=== PATIENT | male | born 1945 | race Caucasian/White ===

== ENCOUNTER → 2017-01-21 | Outpatient (CLI) | payer BC ==
[~2017-01-21] MED LIST: AGM875 PO; EZET10TA38; FAMO40TA6 PO; LISI40TA PO; LRT5 PO; SIMV40TA2 PO; [UNRECOGNIZED DRUG - OTHER] PO
== END | disposition home or self-care (01) ==
LOC: C.PATHSPEC 18:19
PROVIDERS: ATTEND Urology
DX: R97.20 Elevated prostate specific antigen [PSA] (principal); C61 Malignant neoplasm of prostate

== ENCOUNTER → 2017-01-29 | Outpatient (CLI) | payer BC ==
[~2017-01-29] MED LIST changes: +OPTIRAY 320 IV PRN
--- NOTE | 2017-01-29 08:27 | DIAGNOSTIC IMAGING REPORT ---
ABDOMEN AND PELVIS CT WITH IV CONTRAST CT DOSE: 918.42 mGy.cm HISTORY: C61 Prostate cancer AUTH#[id number] VALID FROM 01/28/17 - 03/29/ TECHNIQUE: Multiaxial CT images of the abdomen and pelvis were performed following the use of intravenous contrast. A dose lowering technique was utilized adhering to the principles of ALARA. COMPARISON STUDY: None. FINDINGS: A few bibasilar linear densities likely represent atelectasis or scarring. There is a left total hip arthroplasty. No suspicious lytic or blastic osseous lesions. Small fat-containing umbilical hernia. Small fat-containing bilateral inguinal hernias. Small hiatus hernia. A 7 mm hypodense lesion within the right hepatic lobe. This is too small to characterize but favors a cyst. There are 2 subtle enhancing lesion within the spleen with the largest measuring 9 mm. These are incompletely characterized on this single phase study but are likely benign. The adrenal glands, pancreas, and gallbladder are unremarkable. Normal caliber abdominal aorta. Bilateral renal hypodense lesions consistent with cysts. The largest in the lower pole of the right kidney measures 3.1 cm. There are small bilateral peripelvic renal cysts. No hydronephrosis. Single prominent right iliac lymph node on image 332 which measures 10 x 8 mm. Otherwise, no retroperitoneal or mesenteric lymphadenopathy. Prostate gland is not well visualized due to the metallic artifact from the left hip prosthesis. The bladder appears unremarkable. Colonic diverticulosis. No bowel wall thickening or obstruction. Normal appendix. IMPRESSION: 1. A single prominent right pelvic sidewall lymph node at the bifurcation of the iliac arteries. This bears watching on future examinations. 2. Otherwise, no definite evidence for metastatic disease within the abdomen or pelvis. 3. Subcentimeter enhancing lesions within the spleen are technically indeterminate but favor benign lesions. 4. Additional findings as described above. Electronically signed by: Fito Stroud M.D. 01/29/2017 8:26 AM Dictated Date/Time: 01/29/2017 8:10 AM
--- NOTE | 2017-01-29 11:22 | DIAGNOSTIC IMAGING REPORT ---
WHOLE BODY BONE SCAN HISTORY: R97.20 Elevated PSAN40.2 Prostate [id number] Prostate [id number] RADIOTRACER: 27.5 mCi Tc-99m MDP STUDY/IMAGES: Planar anterior and posterior whole body imaging was performed 3 hours following the intravenous administration of radiotracer. COMPARISON: Abdomen and pelvis CT 01/29/2017. FINDINGS: Patchy areas of radiotracer uptake seen within the thoracic and lumbar spine. The total area of uptake is greater than expected for degenerative change and therefore raises the possibility of metastatic disease. 2 small focal areas of radiotracer uptake seen within the cervical spine likely represent degenerative change. Left hip prosthesis. Radiotracer uptake within the right first MTP joint likely represents degenerative change. Small focal areas of radiotracer uptake seen within the left temporal bone and left anterior first rib. IMPRESSION: 1. Patchy areas of radiotracer uptake seen within the thoracic and lumbar spine. The total area of uptake is greater than expected for degenerative change and therefore raises the possibility of metastatic disease. Thoracic and lumbar spine MRI can be performed for confirmation. 2. Small focal areas of radiotracer uptake seen within the left temporal bone and left anterior first rib. These are also concerning for areas of metastatic disease. Electronically signed by: Fito Stroud M.D. 01/29/2017 11:21 AM Dictated Date/Time: 01/29/2017 11:15 AM
== END | disposition home or self-care (01) ==
LOC: C.NUCL 07:09
PROVIDERS: ATTEND Urology
DX: R97.20 Elevated prostate specific antigen [PSA] (principal); N40.2 Nodular prostate without lower urinary tract symptoms; C61 Malignant neoplasm of prostate

== ENCOUNTER → 2017-01-30 | Outpatient (CLI) | payer BC ==
[~2017-01-30] MED LIST changes: -OPTIRAY 320 IV PRN
== END | disposition home or self-care (01) ==
LOC: C.LABSPEC 17:32
PROVIDERS: ATTEND Urology
DX: M89.9 Disorder of bone, unspecified (principal)

== ENCOUNTER → 2017-02-07 | Outpatient (CLI) | payer BC ==
[~2017-02-07] MED LIST changes: +GADAVIST IV PRN
--- NOTE | 2017-02-07 10:24 | DIAGNOSTIC IMAGING REPORT ---
RIBS BILATERAL WITH PA CHEST CLINICAL HISTORY: 71 years-old Male presenting with history of prostate cancer, bone lesion. TECHNIQUE: Frontal and oblique views of the ribs were obtained as well as PA view of the chest. COMPARISON: None. FINDINGS: No displaced rib fracture. The left anterior first rib is grossly normal in appearance on radiograph. Cardiomediastinal silhouette normal. Lungs and pleural spaces clear. Upper abdomen normal. IMPRESSION: 1. Evaluation for an osseous lesion is limited on radiography. No displaced rib fracture. 2. No acute cardiopulmonary disease. Electronically signed by: Prudencio Luis M.D. 02/07/2017 10:23 AM Dictated Date/Time: 02/07/2017 10:18 AM
--- NOTE | 2017-02-07 10:28 | DIAGNOSTIC IMAGING REPORT ---
SKULL MIN 4 VIEWS CLINICAL HISTORY: 71 years-old Male presenting with M89.9 Bone [id number]. TECHNIQUE: 5 views of the skull were obtained. COMPARISON: Bone scan from 01/29/2017. FINDINGS: Evaluation for a bony lesion on radiograph is limited. No displaced calvarial fracture. No gross evidence of an osseous lesion. Paranasal sinuses and mastoid air cells grossly clear. IMPRESSION: No gross evidence of a destructive osseous lesion. Radiograph has limited sensitivity for osseous metastatic disease. Findings on the nuclear medicine bone scan remain concerning for metastatic involvement of the left temporal bone as mentioned. Electronically signed by: Prudencio Luis M.D. 02/07/2017 10:26 AM Dictated Date/Time: 02/07/2017 10:25 AM
--- NOTE | 2017-02-07 12:04 | DIAGNOSTIC IMAGING REPORT ---
THORACIC SPINE COMBO CLINICAL HISTORY: 71 years-old Male presenting with prostate cancer, bone lesion, further evaluation with MR, mid thoracic pain especially while golfing. TECHNIQUE: Multisequence, multiplanar MR imaging of the thoracic spine was performed before and after the administration of intravenous contrast. IV contrast: 9 mL of Gadavist. COMPARISON: Bone scan from 01/29/2017. FINDINGS: Localizer images: Unremarkable. Slightly exaggerated thoracic kyphosis. Mild levoscoliotic curvature of the upper thoracic spine. Well-defined T2 hyperintense, T1 isointense nonenhancing lesion in the T5 vertebral body appears to incompletely loose signal intensity on STIR images, indeterminate but possibly benign hemangioma. A T2 hyperintense, T1 hyperintense enhancing lesion in T11 appears to contain a central focus of fat evidenced by loss of signal intensity on STIR. This is indeterminate but possibly a benign hemangioma. The degree of abnormality throughout the thoracic region noted on bone scan does not correlate to focal suspicious lesions. Several levels demonstrate fatty endplate changes (Modic type II). Otherwise vertebral bodies maintain normal height, alignment, and bone marrow signal intensity. Diffuse disc desiccation noted in the mid thoracic spine. Multilevel degenerative changes with disc osteophyte complexes noted to varying degrees at nearly every level most prominently at T3-4, T5-6, T7-8, T8-9, and T11-12. At these levels, mild effacement of the anterior thecal sac is noted without evidence of deformation of the spinal cord. Neural foramina remain patent. Thoracic spinal cord normal in morphology and signal intensity. No paraspinal edema. No abnormal enhancement on postcontrast imaging, allowing for degradation of axial postcontrast imaging due to motion artifact. Incidental note made of a T2 hyperintense, T1 hypointense nonenhancing lesion at the upper pole the right kidney compatible with a cyst with a single thin septation (Bosniak 2). IMPRESSION: 1. The diffuse abnormalities in the thoracic spine detected on bone scan do not directly correlate with lesions on MR. Two indeterminate lesions are present, which are much more limited than the abnormality on bone scan. One lesion is in the T5 vertebral body and the second in the T11 vertebral body. However, these lesions are favored to represent benign hemangiomas, although typical hemangiomas would contain more fat. The radiotracer uptake on recent bone scan could be intensely correlate with the diffuse degree of degenerative change evident on this exam. If there is clinical concern, further evaluation with sodium fluoride PET/CT may better delineate metastatic disease in the setting of prostate cancer. 2. Multilevel degenerative changes in the thoracic spine with disc osteophyte complexes to varying degrees at nearly every level. At most, these result in mild effacement of the ventral thecal sac. No evidence of spinal cord impingement. No neural foraminal narrowing. Electronically signed by: Prudencio Luis M.D. 02/07/2017 12:03 PM Dictated Date/Time: 02/07/2017 11:43 AM
== END | disposition home or self-care (01) ==
LOC: C.MRI 09:21
PROVIDERS: ATTEND Urology
DX: M89.9 Disorder of bone, unspecified (principal); C61 Malignant neoplasm of prostate

== ENCOUNTER 2017-03-14 05:26 | Observation (INO) | payer BC, OTHER ==
[2017-02-26 08:29] VITALS: BMI 31.0
--- NOTE | 2017-02-26 09:02 | PAT Medication Instructions ---
Service Date Feb 26, 2017. Current Home Medication List Acetaminophen (Tylenol), 1,000 MG PO PRN Famotidine (Pepcid), 40 MG PO QAM Lisinopril (Zestril), 40 MG PO QAM Naproxen (Aleve), 440 MG PO PRN Simvastatin (Zocor), 40 MG PO QPM [Nerve Renew Vitamin], 1 TAB PO BID Medication Instructions For Your Scheduled Surgery - Check with surgeon for instructions: Naproxen (Aleve), 440 MG PO PRN - Hold the following medications 2 weeks prior to surgery: [Nerve Renew Vitamin], 1 TAB PO BID - Hold the following medications the morning of surgery: Famotidine (Pepcid), 40 MG PO QAM Lisinopril (Zestril), 40 MG PO QAM - Take the following medications the morning of surgery with a sip of water: Acetaminophen (Tylenol), 1,000 MG PO PRN (okay to take up to 4 hours prior to surgery if needed) - Take the following medications as scheduled the night before surgery: Simvastatin (Zocor), 40 MG PO QPM Acetaminophen (Tylenol), 1,000 MG PO PRN If you have any questions please call us at [phone] or [phone] or [phone]
[2017-02-26 10:38] LABS: URINE APPEARANCE CLEAR (CLEAR); URINE BILIRUBIN NEG (NEG); URINE COLOR DK YELLOW; URINE NITRITE NEG (NEG); URINE PH 5.5 (4.5-7.5); URINE SPECIFIC GRAVITY 1.026 (1.000-1.030); UROBILINOGEN NEG (NEG)
[2017-02-26 10:39] LABS: BASO % 0.2 %; BASO ABS # 0.01 K/uL (0-0.2); COMPLETE YES; EOS % 4.2 %; HEMATOCRIT 46.4 % (42-52); IG% 0.2 %; LYMPH % 36.8 %; LYMPH ABS # 1.85 K/uL (1.2-3.4); MEAN CELL VOLUME 92.6 fL (80-100); MEAN CORPUSCULAR HEMOGLOBIN 32.7 pg (25-34); MEAN CORPUSCULAR HGB CONC 35.3 g/dl (32-36); MEAN PLATELET VOLUME 10.2 fL (7.4-10.4); MONO % 10.3 %; NEUT % 48.3 %; PLATELET COUNT 188 K/uL (130-400); RED BLOOD COUNT 5.01 M/uL (4.7-6.1); WHITE BLOOD COUNT 5.03 K/uL (4.8-10.8)
[2017-02-26 10:43] LABS: MANUAL MICROSCOPIC REQUIRED? NO; REVIEW REQ? NO
[2017-02-26 11:56] LABS: BUN/CREATININE RATIO 19.1 (10-20); CALCIUM 8.8 mg/dl (8.5-10.1); CREATININE 0.99 mg/dl (0.60-1.40); POTASSIUM 4.6 mmol/L (3.5-5.1)
[~2017-03-14] VITALS: Ht 170.2 cm; Wt 90.5 kg
[2017-03-14] VITALS (9 sets, daily range): BP systolic 125–176; BP diastolic 77–98; PULSE 60–99; TEMP 36.5–37.3; O2SAT 90–97; Ht 170.2 cm; Wt 90.5 kg
[~2017-03-14 05:26] MED LIST changes: +ACET-1256 PO; -AGM875 PO; -EZET10TA38; -GADAVIST IV PRN; -LRT5 PO; +NAPR1TAB9 PO
[2017-03-14] MEDS ORDERED: HEPARIN SOD 5000 UNIT/0.5 ML CARP SQ SCH (06:00)
[2017-03-14] MEDS ORDERED: CEFAZOLIN 3000MG IV PUSH 15 ML IV SCH (06:00)
[2017-03-14] MEDS ORDERED: LACTATED RINGER'S 1000ML 1,000 ML IV SCH ×2 (06:00)
[2017-03-14] MEDS ORDERED: BUPIVACAINE 0.5 % 5 MG/1 ML MPF 30ML VIAL ONE (06:50)
--- NOTE | 2017-03-14 06:54 | History & Physical Bridge Note ---
H&P Re-Evaluation Bridge Note: I have examined the patient, reviewed the History & Physical and in the interval since the performance of the History & Physical I have noted the following changes of clinical significance: No changes noted
[2017-03-14] MEDS ORDERED: PROPOFOL IV EMULSION 10 MG/ML 20 ML VIAL IV ONE (07:07)
[2017-03-14] MEDS ORDERED: LIDOCAINE HCL 2% 2 ML VIAL (20MG/ML) ONE (07:07)
[2017-03-14] MEDS ORDERED: FENTANYL CITRATE INJ 50 MCG/1 ML 2 ML VIAL ONE ×3 (07:07→10:43)
[2017-03-14] MEDS ORDERED: ROCURONIUM BROMIDE 10 MG/ML 5 ML VIAL IV ONE ×2 (07:07→10:47)
[2017-03-14] MEDS ORDERED: MIDAZOLAM HCL 1 MG/ML 2ML VIAL ONE (07:07)
[2017-03-14] MEDS ORDERED: ONDANSETRON INJ 2 MG/ML 2 ML VIAL IV PRN (07:15)
[2017-03-14] MEDS ORDERED: HYDROmorphone INJ 1 MG/ML SYR IV PRN (07:15)
[2017-03-14] MEDS ORDERED: EpHEDrine SULFATE INJ 50 MG/ML AMP IV PRN (07:15)
[2017-03-14] MEDS ORDERED: ATROPINE SULFATE 0.1 MG/ML 5ML SYR IV PRN (07:15)
[2017-03-14] MEDS ORDERED: DEXAMETHASONE SOD INJ 4 MG/ML VIAL ONE (07:50)
[2017-03-14] MEDS ORDERED: ONDANSETRON INJ 2 MG/ML 2 ML VIAL ONE ×2 (07:50→10:43)
[2017-03-14] MEDS ORDERED: METHYLENE BLUE 0.5% 10 ML VIAL ONE (08:43)
[2017-03-14] MEDS ORDERED: LABETALOL HCL IV 5 MG/ML 20ML IV ONE (09:14)
[2017-03-14] MEDS ORDERED: FLOSEAL HEMOSTATIC MATRIX 10ML TOP ONE (09:36)
[2017-03-14] MEDS ORDERED: SURGICEL ABSORB HEMOSTAT 2IN X 14IN TOP ONE (09:37)
[2017-03-14] MEDS ORDERED: NEOSTIGMINE METHYLSULFATE 5 MG/5 ML SYR ONE (10:43)
[2017-03-14] MEDS ORDERED: GLYCOPYRROLATE INJ 0.2 MG/ML VIAL ONE (10:43)
[2017-03-14] MEDS ORDERED: OXYBUTYNIN CHLORIDE 5 MG TAB PO PRN (11:30)
[2017-03-14] MEDS ORDERED: CEFAZOLIN IV 2,000 MG in DEXTROSE 5% 50ML 50 ML IV SCH (11:30)
[2017-03-14] MEDS ORDERED: KETOROLAC TROMETHAMINE 15 MG/ML VIAL IV PRN (11:30)
--- NOTE | 2017-03-14 11:42 | [facility] Post Operative Brief Note ---
Immediate Operative Summary Operative Date Mar 14, 2017. Pre-Operative Diagnosis cT2a [place] 3+4 prostate cancer, pretreatment PSA of 17 Post-Operative Diagnosis Same as preop Procedure(s) Performed Robot Assisted Laparoscopic Radical Retropubic Prostatectomy, with Bilateral Pelvic Lymph Node Dissection and Robotic Lysis of Adhesions, Suprapubic Tube Placement Surgeon Dr. Aylin Maria Student Development Specialist Surgeon(s) Emily Sy NP Estimated Blood Loss 200 ml Findings Watertight anastomosis after bladder neck reconstruction, SPT in good location, inflamed pelvic lymph nodes, R>L Specimens Prostate + SVs Periprostatic fat Right pelvic lymph nodes Left pelvic lymph node Drains 18 fr silicone swain 10 cc H2O, 16 fr Rutner SPT, #10 VICKIE drain LLQ Anesthesia GAET + local Complication(s) None Disposition Recovery Room / PACU
[2017-03-14] MEDS: FENTANYL CITRATE INJ 50 MCG/1 ML 2 ML VIAL IV PRN ×2 (11:55→12:00)
--- NOTE | 2017-03-14 12:05 | [facility] Operative Report ---
Operative Report Operative Date Mar 14, 2017. Pre-Operative Diagnosis cT2a [place] 3+4 prostate cancer, pretreatment PSA of 17 Post-Operative Diagnosis Same as preop Procedure(s) Performed Robot Assisted Laparoscopic Radical Retropubic Prostatectomy, with Bilateral Pelvic Lymph Node Dissection and Robotic Lysis of Adhesions, Suprapubic Tube Placement Surgeon Dr. Aylin Maria Ward Clerk Surgeon(s) Emily Sy NP Estimated Blood Loss 200 ml Findings Watertight anastomosis, good position of SPT, inflamed pelvic lymph nodes L>R Specimens Prostate + SVs Periprostatic fat Right pelvic lymph nodes Left pelvic lymph node Drains 18 fr silicone swain 10 cc H2O, 16 fr Rutner SPT, #10 VICKIE drain LLQ Anesthesia GAET + local Complication(s) None Disposition Recovery Room / PACU Indications 71-year-old male with a history of an elevated PSA at 17 and a prostate nodule on examination found to have [place] 4+3 adenocarcinoma the left side on office prostate biopsy. Please see H&P for further details. Patient is decided upon a robotic prostatectomy to manage disease. He has a borderline abnormality on bone scan felt to be consistent with osteoarthritis on MRI of the spine the borderline right pelvic lymph node on CT scan imaging. Intravenous antibiotics were provided for coverage and SCDs and subcutaneous heparin used for DVT prophylaxis. Description of Procedure Patient was properly identified and brought into the operative suite after verification of appropriate consent of the chart. General anesthesia with endotracheal intubation was initiated and the patient was prepped and draped in the standard fashion for this procedure. Full timeout procedure was followed. Ports were placed for a fourth arm robotic template including a 12 mm supraumbilical camera port, 2 left-sided 7 mm robotic ports, 1 right-sided 7 mm robotic port and a 12 and 2 mm assistant store manager sales port on the right-hand side. Abdomen was insufflated to 15 mmHg and inspected. It was noted to be free of any injury on port placement with bowel adhesions present within the left lower quadrant and pelvis consistent with previous episodes of diverticulitis. Patient was brought into Trendelenburg and robot was docked. Using cold scissors the pelvic bowel attachments were divided to allow for access to the bladder and pelvis. Colonic adhesions at the level of the sigmoid were divided as well for mobility of the bladder. Bladder was dropped using a hook cautery down to the level of the pubic bone and prostate was defatted. This was sent for pathologic analysis is periprosthetic fat. Endopelvic fascia was sharply entered on both sides and the prostate was cleared to the level of the apex. Puboprostatic ligaments were divided and dorsal venous complex was skeletonized. An 0 Vicryl suture and a CT1 needle was used to control the dorsal vein in a [id number] fashion with excellent hemostasis. Planned nerve sparing dissection on the right-hand side were no biopsies were positive for malignancy was initiated. A 70 down lens was used to address the bladder neck which was skeletonized down to the level of the Swain catheter. This was then used in the fourth arm for anterior traction on the prostate gland. Patient was noted to have a median lobe aliment as well as a relatively large prostate which caused a somewhat patulous bladder neck. Methylene blue was provided intraoperatively to ensure identification of the ureteral orifices. At the end of the case bladder neck reconstruction was required on the right- hand side. Posterior bladder neck was divided and bladder was dropped in the midline until the seminal vesicles and vasa differentia were encountered in the midline. Vas were divided and seminal vesicles were dissected free. Care was taken to cauterize vessels associated with these structures. The prostatic pedicles were controlled using Weck clips and cold scissors. Nerve sparing dissection was carried out on the right-hand side as planned and a wider dissection was carried out on the left-hand side with the patient's higher grade Hercules disease was present. After this dissection was carried up to the level of the apex hot scissors were used to divide the dorsal venous complex and the urethra was skeletonized and divided using cold scissors. Rectourethralis fibers were taken and the prostate was brought up into the abdomen where was placed in an Endo Catch bag for retrieval at the end of the case. Rectum was tested with insufflation under saline irrigation and noted to be free of injury. FloSeal tissue seal was placed over the rectum for additional hemostasis. Attention was turned to the pelvic lymph node dissections for starting on the right-hand side. Using the external iliac vessels the pelvic sidewall and the obturator nerve pelvic lymph node dissection was carried out using clips and cautery as necessary for control of lymphatics and small blood vessels. Great care was taken to avoid any injury to the obturator nerve which was noted to be intact bilaterally and of the case. Lymph node packet was marked with a clip on the right-hand side and excellent hemostasis was appreciated. FloSeal and Surgicel was used on the right-hand side for additional hemostasis. A similar dissection was carried out on the left-hand side where a less indurated lymph node packet was appreciated. This was also noted to be more friable. After dissection was carried out with similar use of clips and cautery FloSeal was placed for additional hemostasis. Lymph node packets were placed within an Endo Catch bag for easier retrieval later. Attention was then turned to the pelvis where a running anastomotic closure using 3-0 double-armed Vloc sutures was performed. A third V-loc suture was used for closure of a right-handed patulous bladder neck with watertight results. Anastomotic closure was tested with greater than 180 mL of irrigant and appreciated to be watertight. 18 [place] silicone catheter was placed with 10 mL of sterile water in the balloon. A Rutner suprapubic tube, 16 [place] was placed via a small suprapubic incision and visualized entering the bladder with 5 mL of sterile water in the balloon. Both catheters were noted to be draining freely. 4th arm removed and a VICKIE drain was brought in via the fourth arm port. This was placed within the confines of the pelvis while avoiding placing it directly over the anastomosis. Robotic instruments were removed and robot was de-docked. The string to the Endo Catch bags were brought up through the supraumbilical incision. Abdomen was desufflated and ports removed. Supraumbilical incision was enlarged sufficiently to allow for easy passage of the specimen back. Fascia was closed using an 0 Vicryl on a UR 5 needle at the level of the midline port. 2-0 silk were used to secure the VICKIE drain and suprapubic tube in place. 4-0 Monocryl was used for skin closures as well as Dermabond. Excess carbon dioxide gas and removed from the abdomen prior to completion of the closure. Swain catheter and suprapubic tube placed to gravity drainage and VICKIE drain to bulb suction. Anesthesia was reversed and patient was transferred to the recovery room in stable condition. Follow-up care: Patient will be admitted to the floor for standard postoperative management. I attest to the content of the Intraoperative Record and any orders documented therein. Any exceptions are noted below.
--- NOTE | 2017-03-14 12:21 | Anesthesiology Progress Note ---
Anesthesia Post Op Note Date & Time Mar 14, 2017 at 12:20 Vital Signs Pain Intensity: 0 Vital Signs Past 12 Hours Date Time Temp Pulse Resp B/P (MAP) Pulse Ox O2 Delivery O2 Flow Rate FiO2 03/14/17 12:10 36.8 54 16 128/88 95 Nasal Cannula 4 03/14/17 12:00 56 16 135/87 94 Oxymask 4 03/14/17 11:50 60 16 148/84 96 Oxymask 10 03/14/17 11:40 55 16 148/88 92 Oxymask 10 03/14/17 11:33 36.9 56 20 134/83 93 Oxymask 10 03/14/17 05:46 36.7 63 16 154/94 (114) 97 Room Air Notes Mental Status: alert / awake / arousable, participated in evaluation Pt Amnestic to Procedure: Yes Nausea / Vomiting: adequately controlled Pain: adequately controlled Airway Patency, RR, SpO2: stable & adequate BP & HR: stable & adequate Hydration State: stable & adequate Anesthetic Complications: no major complications apparent
[2017-03-14 12:24] LABS: HEMATOCRIT 46.4 % (42-52); MEAN CELL VOLUME 92.6 fL (80-100); MEAN CORPUSCULAR HEMOGLOBIN 32.9 pg (25-34); MEAN PLATELET VOLUME 10.1 fL (7.4-10.4); PLATELET COUNT 203 K/uL (130-400); RED BLOOD COUNT 5.01 M/uL (4.7-6.1)
[2017-03-14 12:51] LABS: MEAN CORPUSCULAR HGB CONC 35.6 g/dl (32-36)
[2017-03-14 12:56] LABS: BUN/CREATININE RATIO 14.1 (10-20); CALCIUM 8.3 mg/dl (8.5-10.1); POTASSIUM 4.2 mmol/L (3.5-5.1)
[2017-03-14] MEDS: LACTATED RINGER'S 1000ML 1,000 ML IV SCH ×2 (14:17→21:25)
[2017-03-14] MEDS: HYDROmorphone INJ 1 MG/ML SYR IV PRN (14:18)
[2017-03-14] MEDS: ONDANSETRON INJ 2 MG/ML 2 ML VIAL IV PRN ×2 (14:24→20:33)
[2017-03-14 14:58] LABS: INR 1.1 (0.9-1.1); PARTIAL THROMBOPLASTIN RATIO 0.9; PROTHROMBIN TIME (PATIENT) 11.7 SECONDS (9.0-12.0)
[2017-03-14] MEDS ORDERED: OXYC7.5T62 PO (15:13)
[2017-03-14] MEDS ORDERED: DTR5 PO (15:13)
[2017-03-14] MEDS ORDERED: CIPR1TAB10 PO (15:13)
[2017-03-14] MEDS ORDERED: CLC100 PO (15:13)
[2017-03-14] MEDS: CEFAZOLIN IV 2,000 MG in SYRINGE 0 ML IV SCH ×2 (15:37→23:48)
[2017-03-14] MEDS ORDERED: NURSING DECISION MEDICATION ORDER SCH (16:15)
[2017-03-14] MEDS ORDERED: NURSING VERBAL MED ORDER ONE (16:30)
[2017-03-14] MEDS ORDERED: CHLORASEPTIC 1.4% SOLN 180 ML BTL MT PRN (16:30)
[2017-03-14] MEDS ORDERED: COUGH DROP (SUGAR FREE) LOZ 24 LOZ/1 BOX PO PRN (16:30)
--- NOTE | 2017-03-14 17:14 | Progress Note ---
Progress Note Date of Service Mar 14, 2017. Progress Note PM rounds: Patient POD#0 s/p RALRP. With numerous family in room, OOBTC, standing and ambulating in the room without difficulties Postop labs reviewed. He notes minimal abdominal pain, + nausea, no emesis - slow intake of clears, IVF running. NAD Good respiratory excursion S1S2 Soft, ND, inc c/d/i A/P 71 yo male POD#0 s/p RALRP Doing well, nausea not unexpected this soon postop. Slow with clears, antiemetics PRN - patient instructed to notify nursing with any changes. Can ambulate this PM with assistance. Increase diet and activity in AM, anticipate DC home after lunch tomorrow. Last 24 Hours Test 03/14/17 11:54 03/14/17 14:24 White Blood Count 12.20 K/uL Red Blood Count 5.01 M/uL Hemoglobin 16.5 g/dL Hematocrit 46.4 % Mean Corpuscular Volume 92.6 fL Mean Corpuscular Hemoglobin 32.9 pg Mean Corpuscular Hemoglobin Concent 35.6 g/dl RDW Standard Deviation 44.3 fL RDW Coefficient of Variation 13.2 % Platelet Count 203 K/uL Mean Platelet Volume 10.1 fL Sodium Level 141 mmol/L Potassium Level 4.2 mmol/L Chloride Level 109 mmol/L Carbon Dioxide Level 26 mmol/L Anion Gap 6.0 mmol/L Blood Urea Nitrogen 14 mg/dl Creatinine 1.00 mg/dl Est Creatinine Clear Calc Drug Dose 74.8 ml/min Estimated GFR () 88.6 Estimated GFR (Non- 76.5 BUN/Creatinine Ratio 14.1 Random Glucose 156 mg/dl Calcium Level 8.3 mg/dl Prothrombin Time 11.7 SECONDS Prothromb Time International Ratio 1.1 Activated Partial Thromboplast Time 23.1 SECONDS Partial Thromboplastin Ratio 0.9
[2017-03-14] MEDS: ACETAMINOPHEN 500 MG TAB PO SCH ×2 (18:03→23:49)
[2017-03-14] MEDS: HEPARIN SOD 5000 UNIT/0.5 ML CARP SQ SCH (19:23)
[2017-03-14] MEDS: FAMOTIDINE 20 MG TAB PO SCH (19:24)
[2017-03-14] MEDS: DOCUSATE SODIUM 100 MG CAP PO SCH (20:33)
[2017-03-14] MEDS ORDERED: SIMVASTATIN 40 MG TAB PO SCH (21:00)
[2017-03-15] MEDS: HYDROmorphone INJ 1 MG/ML SYR IV PRN (02:31)
[2017-03-15 03:40] VITALS: BP 106/65; PULSE 76; TEMP 36.9; O2SAT 91
[2017-03-15] MEDS: ACETAMINOPHEN 500 MG TAB PO SCH ×2 (05:47→12:00)
--- NOTE | 2017-03-15 07:06 | Progress Note ---
Subjective Date of Service: Mar 15, 2017. Subjective Pt evaluation today including: conversation w/ patient, physical exam, chart review, lab review, review of inpatient medication list Pain: Controlled, incisional PO Intake: Gustavo small clears, improved nausea this AM, no emesis Voiding: swain catheter in place (folehy + SPT draining) 71 yo male POD#1 s/p RALRP, BPLND, SPT. He was ambulatory yesterday, feeling well in PM rounds, well rested and comfortable overnight. Past notes and nursing notes reviewed. Minimal VICKIE output, UOP split between SPT and swain. He notes he prefers to keep SPT at home. No other events noted, AM labs pending. Review of Systems Constitutional: No fever, No chills Eyes: No worsening of vision ENT: No hearing loss Respiratory: No shortness of breath Cardiac: No chest pain Abdomen: + pain, + nausea, No vomiting, No diarrhea Male : + see HPI Neurologic: No memory loss, No paralysis Psychiatric: No depression symptoms Heme: No abnormal bleeding/bruising Skin: No new/changing skin lesions, No color change Objective Vital Signs Date Time Temp Pulse Resp B/P (MAP) Pulse Ox O2 Delivery O2 Flow Rate FiO2 03/15/17 03:40 36.9 76 16 106/65 (79) 91 Room Air 03/14/17 23:50 Room Air 03/14/17 23:41 37.1 94 18 125/77 (93) 91 Room Air 03/14/17 19:45 37.3 99 18 127/79 (95) 91 Room Air 03/14/17 16:09 36.5 82 18 155/93 (113) 90 Room Air 03/14/17 15:30 93 Room Air 03/14/17 15:03 36.6 61 16 125/82 (96) 95 Nasal Cannula 3.0 03/14/17 14:05 36.5 65 17 176/98 (124) 97 Nasal Cannula 3.0 03/14/17 13:30 36.8 68 16 145/92 (109) 97 Nasal Cannula 2.0 03/14/17 13:05 Nasal Cannula 03/14/17 13:05 Nasal Cannula 03/14/17 13:05 36.8 60 18 148/91 (110) 96 Nasal Cannula 3.0 03/14/17 12:50 55 16 144/84 96 Nasal Cannula 3 03/14/17 12:40 54 16 124/88 96 Nasal Cannula 4 03/14/17 12:30 55 15 135/87 95 Nasal Cannula 4 03/14/17 12:20 55 14 134/87 95 Nasal Cannula 4 03/14/17 12:10 36.8 54 16 128/88 95 Nasal Cannula 4 03/14/17 12:00 56 16 135/87 94 Oxymask 4 03/14/17 11:50 60 16 148/84 96 Oxymask 10 03/14/17 11:40 55 16 148/88 92 Oxymask 10 03/14/17 11:33 36.9 56 20 134/83 93 Oxymask 10 Physical Exam General Appearance: no apparent distress, + obese ENT: normal ENT inspection Neck: supple, no adenopathy Respiratory/Chest: no respiratory distress, no accessory muscle use Cardiovascular: no JVD Abdomen: non tender, soft, + pertinent finding (minimally distended, inc c/d/i with dermabond) Neurologic/Psychiatric: alert, oriented x 3 Skin: normal color Laboratory Results Last 24 Hours Test 03/14/17 11:54 03/14/17 14:24 03/15/17 04:44 White Blood Count 12.20 K/uL Red Blood Count 5.01 M/uL Hemoglobin 16.5 g/dL Hematocrit 46.4 % Mean Corpuscular Volume 92.6 fL Mean Corpuscular Hemoglobin 32.9 pg Mean Corpuscular Hemoglobin Concent 35.6 g/dl RDW Standard Deviation 44.3 fL RDW Coefficient of Variation 13.2 % Platelet Count 203 K/uL Mean Platelet Volume 10.1 fL Sodium Level 141 mmol/L Potassium Level 4.2 mmol/L Chloride Level 109 mmol/L Carbon Dioxide Level 26 mmol/L Anion Gap 6.0 mmol/L Blood Urea Nitrogen 14 mg/dl Creatinine 1.00 mg/dl Est Creatinine Clear Calc Drug Dose 74.8 ml/min Estimated GFR () 88.6 Estimated GFR (Non- 76.5 BUN/Creatinine Ratio 14.1 Random Glucose 156 mg/dl Calcium Level 8.3 mg/dl Prothrombin Time 11.7 SECONDS Prothromb Time International Ratio 1.1 Activated Partial Thromboplast Time 23.1 SECONDS Partial Thromboplastin Ratio 0.9 Assessment and Plan A/P 71 yo male POD#1 s/p RALRP, BPLND, SPT Doing well. Advance diet and activity this AM. DC swain now, continue SPT. Will DC IVF and DC VICKIE after lunch prior to DC if well tolerated. DC instructions, plan and limitations reviewed with patient. Discharge planning: home
[2017-03-15] MEDS: HEPARIN SOD 5000 UNIT/0.5 ML CARP SQ SCH (07:07)
[2017-03-15] MEDS: LACTATED RINGER'S 1000ML 1,000 ML IV SCH ×2 (07:10→07:59)
--- NOTE | 2017-03-15 07:39 | Anesthesiology Progress Note ---
Anesthesia Post Op Note Date & Time Mar 15, 2017 at 07:39 Vital Signs Pain Intensity: 7.0 Vital Signs Past 12 Hours Date Time Temp Pulse Resp B/P (MAP) Pulse Ox O2 Delivery O2 Flow Rate FiO2 03/15/17 03:40 36.9 76 16 106/65 (79) 91 Room Air 03/14/17 23:50 Room Air 03/14/17 23:41 37.1 94 18 125/77 (93) 91 Room Air 03/14/17 19:45 37.3 99 18 127/79 (95) 91 Room Air Notes Mental Status: alert / awake / arousable, participated in evaluation Pt Amnestic to Procedure: Yes Nausea / Vomiting: adequately controlled Pain: adequately controlled Airway Patency, RR, SpO2: stable & adequate BP & HR: stable & adequate Hydration State: stable & adequate Anesthetic Complications: no major complications apparent
[2017-03-15 07:44] LABS: COMPLETE YES; EOS % 0.1 %; HEMATOCRIT 44.6 % (42-52); IG% 0.3 %; LYMPH % 15.5 %; LYMPH ABS # 1.73 K/uL (1.2-3.4); MEAN CELL VOLUME 93.5 fL (80-100); MEAN CORPUSCULAR HEMOGLOBIN 32.1 pg (25-34); MEAN CORPUSCULAR HGB CONC 34.3 g/dl (32-36); MONO % 11.4 %; NEUT % 72.7 %; PLATELET COUNT 201 K/uL (130-400); RED BLOOD COUNT 4.77 M/uL (4.7-6.1); WHITE BLOOD COUNT 11.18 K/uL (4.8-10.8)
--- NOTE | 2017-03-15 07:47 | Discharge Instructions ---
Discharge Instructions Date of Service Mar 14, 2017. Admission Reason for Admission: Prostate Cancer Discharge Discharge Diagnosis / Problem: Prostate Cancer Discharge Goals Goal(s): Decrease discomfort, Improve disease control, Therapeutic intervention Activity Recommendations Activity Limitations: per Instructions/Follow-up section Shower/Bathe: tomorrow 1. Do not lift >15lbs x 6 weeks. 2. No heavy exercise x 6 weeks. You may engage in light activity such as walking and stairs as tolerated. 3. No sexual intercourse until cleared by Dr. Maria. 4. Do not drive x [address] while taking narcotics. 5. Finish all of the antibiotic you have been prescribed. 6. Immediately call our office at [phone] if your catheter is removed for any reason. 7. Follow-up as scheduled. Please call our office at [phone] if you need to reschedule for any reason. 8. You may resume taking Aleve in 1 week. . . Current Hospital Diet Hospital Diet(s): Clear Liquid Diet Discharge Diet Recommended Diet: Regular Diet Procedures Procedures Performed: Robot Assisted Laparoscopic Radical Retropubic Prostatectomy, with Bilateral Pelvic Lymph Node Dissection and Robotic Lysis of Adhesions, Suprapubic Tube Placement Pending Studies Studies pending at discharge: yes (prostate pathology) List of pending studies: prostate pathology Medical Emergencies . Who to Call and When: Medical Emergencies: If at any time you feel your situation is an emergency, please call 911 immediately. . Non-Emergent Contact Non-Emergency issues call your: Urologist Call Non-Emergent contact if: temperature is above 101.5, your pain is not controlled, your pain is worsening, your pain is unusual for you, your pain is concerning you, wound has increased drainage, wound has increased redness, wound has increased pain, you have any medication questions . . "Provider Documentation" section prepared by Emily Sy. . VTE Core Measure Inpt VTE Proph given/why not?: Unfractionated heparin SQ, SCD's [place] Drug Monitoring Program Search Results: patient reviewed within database, no issues identified
[2017-03-15] MEDS: CEFAZOLIN IV 2,000 MG in SYRINGE 0 ML IV SCH (07:59)
[2017-03-15 08:00] VITALS: BP 130/80; PULSE 57; TEMP 37; O2SAT 93
[2017-03-15 08:10] VITALS: O2SAT 93
[2017-03-15 08:19] LABS: BUN/CREATININE RATIO 19.1 (10-20); CALCIUM 8.5 mg/dl (8.5-10.1); CREATININE 1.14 mg/dl (0.60-1.40); POTASSIUM 4.2 mmol/L (3.5-5.1)
[2017-03-15] MEDS: OXYCODONE/ACETAMINOPHEN 7.5-325 TAB PO PRN ×2 (08:19→12:38)
[2017-03-15] MEDS: FAMOTIDINE 20 MG TAB PO SCH (08:20)
[2017-03-15] MEDS: DOCUSATE SODIUM 100 MG CAP PO SCH (08:20)
[2017-03-15] MEDS ORDERED: LISINOPRIL 40 MG TAB PO SCH (09:00)
[2017-03-15] MEDS ORDERED: IV FLUIDS COMPLETED PRN (10:30)
[2017-03-15 12:00] VITALS: BP 132/80; PULSE 58; TEMP 36.7; O2SAT 92
[2017-03-15 13:05] VITALS: BP 132/80; PULSE 58; TEMP 36.7; O2SAT 92
== END 2017-03-15 15:04 | disposition home or self-care (01) ==
LOC: C.ACU 05:26 → C.MSN 11:30 → INTOOBSV 11:30 → ENRESERV 12:38
PROVIDERS: ADMIT Urology; ATTEND Urology
DX: C61 Malignant neoplasm of prostate (principal); I10 Essential (primary) hypertension; E78.00 Pure hypercholesterolemia, unspecified; Z79.82 Long term (current) use of aspirin; Z79.899 Other long term (current) drug therapy

== ENCOUNTER → 2017-04-30 | Outpatient (CLI) | payer BC ==
[~2017-04-30] MED LIST changes: +CIPR1TAB10 PO; +CLC100 PO; +DTR5 PO; -NAPR1TAB9 PO; +OXYC7.5T62 PO
== END | disposition home or self-care (01) ==
LOC: C.LABSPEC 16:50
PROVIDERS: ATTEND Urology
DX: R97.20 Elevated prostate specific antigen [PSA] (principal)

== ENCOUNTER → 2017-07-30 | Outpatient (CLI) | payer BC ==
[2017-07-30 12:56] LABS: BLOOD UREA NITROGEN 13 mg/dl (7-18); CREATININE 0.98 mg/dl (0.60-1.40)
== END ==
LOC: C.LAB 11:42
PROVIDERS: ATTEND Urology
DX: R97.20 Elevated prostate specific antigen [PSA] (principal); N40.2 Nodular prostate without lower urinary tract symptoms